=== PATIENT | female | born 1955 | race Caucasian/White ===

== ENCOUNTER 2025-02-24 11:01 | Emergency (ER) | payer OTHER ==
[~2025-02-24] VITALS: Ht 167.6 cm; Wt 51.7 kg
[~2025-02-24 11:01] MED LIST: COZAAR50 MG; METOPROLOL SUCC25 MG; PERCOCET 10-3251 TAB
[2025-02-24] MEDS ORDERED: BUTALB/ACETAMINOPHEN/CAFFEINE 1 TAB TABLET PO ONE (15:15)
== END 2025-02-24 17:26 | disposition home or self-care (01) ==
LOC: ER 11:01
DX: M94.0 Chondrocostal junction syndrome [Tietze] (principal); I10 Essential (primary) hypertension; E05.90 Thyrotoxicosis, unspecified without thyrotoxic crisis or storm; Z88.8 Allergy status to other drugs, medicaments and biological substances